=== PATIENT | female | born 1990 | race Caucasian/White ===

== ENCOUNTER 2021-12-13 08:57 | Outpatient (CLI) | payer OTHER, SELFPAY ==
[2021-12-13] VITALS (9 sets, daily range): BP systolic 112–134; BP diastolic 59–69; PULSE 85–112
[2021-12-13 09:52] LABS: Basophils Absolute Auto 0.1 K/mm3 (0.0-0.1); Basophils Percent Auto 0.6 % (0.2-1.2); Eosinophils Absolute Auto 0.2 K/mm3 (0-0.3); Eosinophils Percent Auto 1.3 % (0-4.4); Hematocrit 34.5 % (37.0-47.0); Hemoglobin 11.1 g/dL (12.0-15.0); Immature Granulocyte Absolute 0.17 K/mm3 (0.00-0.031); Immature Granulocyte Percent A 1.5 % (0-0.5); Lymphocytes Absolute Auto 2.94 K/mm3 (0.9-3.2); Lymphocytes Percent Auto 25.2 % (18.3-44.2); Mean Corpuscular HGB Conc 32.2 g/dl (32-36); Mean Corpuscular Hemoglobin 28.2 pg (26-34); Mean Corpuscular Volume 87.8 fl (80-100); Mean Platelet Volume 10.9 fl (7.4-10.4); Monocytes Absolute Auto 0.6 K/mm3 (0.1-0.6); Monocytes Percent Auto 5.1 % (2.6-8.5); Neutrophils Absolute Auto 7.7 K/mm3 (1.3-6.7); Neutrophils Percent Auto 66.3 % (45.5-73.1); Platelet Count Result 300 k/mm3 (150-375); Red Blood Count 3.93 M/mm3 (4.2-5.4); Red Cell Distribution Width 15.7 % (11.5-14.5); White Blood Count 11.7 K/mm3 (4.5-10.0)
[2021-12-13 10:09] LABS: Alanine Aminotransferase 15 U/L (6-35); Albumin Level 3.8 g/dL (3.5-5.1); Alkaline Phosphatase 139 U/L (38-126); Anion Gap 7 mmol/L (8-16); Aspartate Amino Transferase 21 U/L (14-36); Bilirubin,Total 0.3 mg/dL (0.2-1.3); Blood Urea Nitrogen 7 mg/dL (7-17); Calcium 8.9 mg/dL (8.4-10.2); Carbon Dioxide 18 mmol/L (22-30); Chloride 112 mmol/L (98-107); Estimated Glomerular Filt Rate > 60; Glucose 81 mg/dL (65-110); Potassium 3.9 mmol/L (3.4-5.0); Sodium 137 mmol/L (137-145); Uric Acid 5.6 mg/dL (2.5-7.5)
[2021-12-13 10:20] LABS: Appearance Urine Slightly Cloudy (Clear); Bilirubin Urine Negative (Negative); Glucose Urine UA Negative (Negative); Ketones Urine Negative (Negative); Leukocyte Esterase Ur Negative LEU/UL (Negative); Nitrate Urine Negative (Negative); Protein Urine Negative (Negative); Specific Grav Ur 1.015 (1.001-1.035); Urobilinogen Urine 0.2 mg/dL (<2.0)
[2021-12-13 10:22] LABS: Add Urine Microscopic? YES; Blood Urine Trace-Intact (Negative); Color Urine Light Yellow (Yellow)
[2021-12-13 10:27] LABS: Creatinine Urine 97.8 mg/dL; Total Protein Urine Random 9 mg/dL; Ur Ttl Prot Creatinine Ratio 0.09 mg/mg (0-0.20)
--- NOTE | 2021-12-13 10:50 | PC.NURSE ---
Dr. Mendes informed of reactive NST, BP's, and lab results. Order for discharge received.
[2021-12-13 10:54] LABS: Bacteria Urine Trace /hpf; Mucus Urine Rare /lpf; RBC Urine 0-2 /hpf (0-2); Squamous Epithelial Cell Urine Rare /hpf (Few)
--- NOTE | 2021-12-13 11:37 | PM.OBTRLD ---
OB - Triage/Final Diagnosis Visit Information Date of evaluation: 12/13/21 Reason for evaluation: other (hypertension) Comments/Additional reasons for admission: I have assessed the risk for this patient, Janessa Aggarwal, and determined that she would benefit from observation care. Evaluation Laboratory results: Laboratory Tests 12/13/21 12/13/21 12/13/21 09:34 09:34 09:34 WBC 11.7 H RBC 3.93 L Hgb 11.1 L Hct 34.5 L MCV 87.8 MCH 28.2 MCHC 32.2 RDW 15.7 H Plt Count 300 MPV 10.9 H Immature Gran % (Auto) 1.5 H Neut % (Auto) 66.3 Lymph % (Auto) 25.2 [place] % (Auto) 5.1 Eos % (Auto) 1.3 Baso % (Auto) 0.6 Lymph # (Auto) 2.94 [place] # (Auto) 0.6 Eos # (Auto) 0.2 Baso # (Auto) 0.1 Abs Immat Gran (auto) 0.17 H Absolute Neuts (auto) 7.7 H Absolute Nucleated RBC 0.0 Nucleated RBC % 0.0 Sodium 137 Potassium 3.9 Chloride 112 H Carbon Dioxide 18 L Anion Gap 7 L BUN 7 Creatinine 0.60 L Estim Creat Clear Calc Not Reportable Estimated GFR > 60 Glucose 81 Uric Acid 5.6 Calcium 8.9 Total Bilirubin 0.3 AST 21 ALT 15 Alkaline Phosphatase 139 H Total Protein 7.0 Albumin 3.8 Urine Color Urine Appearance Urine pH Ur Specific [place] Urine Protein Urine Glucose (UA) Urine Ketones Ur Blood (Man) Urine Nitrate Urine Bilirubin Urine Urobilinogen Leukocyte Esterase Rfl Urine RBC Urine WBC Ur Squamous Epith Cells Urine Bacteria Urine Mucus U Random Total Protein 9 Urine Creatinine 97.8 Protein/Creat Ratio 2 0.09 12/13/21 09:34 WBC RBC Hgb Hct MCV MCH MCHC RDW Plt Count MPV Immature Gran % (Auto) Neut % (Auto) Lymph % (Auto) [place] % (Auto) Eos % (Auto) Baso % (Auto) Lymph # (Auto) [place] # (Auto) Eos # (Auto) Baso # (Auto) Abs Immat Gran (auto) Absolute Neuts (auto) Absolute Nucleated RBC Nucleated RBC % Sodium Potassium Chloride Carbon Dioxide Anion Gap BUN Creatinine Estim Creat Clear Calc Estimated GFR Glucose Uric Acid Calcium Total Bilirubin AST ALT Alkaline Phosphatase Total Protein Albumin Urine Color Light yellow Urine Appearance Slightly cloudy Urine pH 7.0 Ur Specific [place] 1.015 Urine Protein Negative Urine Glucose (UA) Negative Urine Ketones Negative Ur Blood (Man) Trace-intact Urine Nitrate Negative Urine Bilirubin Negative Urine Urobilinogen 0.2 Leukocyte Esterase Rfl Negative Urine RBC 0-2 Urine WBC 4-6 H Ur Squamous Epith Cells Rare Urine Bacteria Trace Urine Mucus Rare U Random Total Protein Urine Creatinine Protein/Creat Ratio 2 Vital signs: Vital Signs - 24 hr 12/13/21 09:21 12/13/21 09:30 12/13/21 09:45 Pulse Rate 92 89 92 Blood Pressure 134/66 128/69 125/69 12/13/21 10:00 12/13/21 10:15 12/13/21 10:30 Pulse Rate 95 85 92 Blood Pressure 123/68 112/64 114/59 L 12/13/21 10:45 Pulse Rate 90 Blood Pressure 123/68
== END 2021-12-13 10:55 | disposition home or self-care (01) ==
LOC: ANHOBOP 09:05 → ANHOBPP 09:05
PROVIDERS: Student in an Organized Health Care Education/Training Program; Visit Provider Obstetrics & Gynecology
DX: O13.9 Gestational [pregnancy-induced] hypertension without significant proteinuria, unspecified trimester (principal); Z3A.00 Weeks of gestation of pregnancy not specified
CPT/HCPCS: 36415; 59025; 80053; 81001; 82570; 84156; 84550; 85025; 99199